=== PATIENT | male | born 1945 | race Caucasian/White ===

== ENCOUNTER → 2021-03-06 12:33 | Outpatient (CLI) | payer OTHER, SELFPAY ==
--- NOTE | 2021-03-06 12:46 | CA_ITS ---
APPROVED REPORT EXAM: Comprehensive 2D, Doppler, and color-flow Echocardiogram Engineer/Conductor: Minna Michelle CRT Ht: 6 ft 3 in Wt: 240lbs BSA: 2.37 BP: 122/70 mmHg Indications: Hyperlipidemia, Hypertension/HDD, stent 2D Dimensions LVOT 2.00 cm (M/F) 1.5-2.5 LA Volume 91.70 mL LA Volume Index 38.70 mL/m2 (M/F) 16-34 M-Mode Dimensions RVDd 2.82 cm (0.9-2.6) LA Diam 4.43 cm (1.9-4.0) LVDd 5.81 cm (3.5-5.7) Ao Diam 3.79 cm (2.0-3.7) LVDs 4.08 cm (3.5-5.7) IVSd 1.25 cm (0.6-1.1) PWd 0.70 cm (0.6-1.1) EF (Teich) 56.10% FS 29.80% EDV (Teich) 167.20 mL TAPSE 2.29 (<1.7) ESV (Teich) 73.40 mL LV Diastology E Decel Time 333.00 (160-240 msec) E/A Ratio 1.48 MED E' 8.20 (< 7 cm/sec) MED A' 11.70 cm/s E'/MED E' Ratio 7.57 (>14) LAT E' 7.00 (<10 cm/sec) LAT A' 2.40 cm/s E/LAT E' Ratio 8.87 (>14) Aortic Valve AI PHT 605.00 ms AO Peak GR. 5.50 mmHg Mitral Valve MV A Velocity 42.00 (40-130 cm/s) E/A Ratio 1.48 MV Decel. Time 333.00 (160-240 ms) Pulmonary Valve PV Peak Velocity 61.00 (50-150 cm/s) Tricuspid Valve TR P. Velocity 286.00 cm/s RAP Estimate 10.00 mmHg RVSP 42.80 mmHg Left Ventricle Left atrium is mildly enlarged, left ventricle is normal size, mild concentric left ventricular hypertrophy, visually estimated ejection fraction 55% with no regional wall motion abnormality, grade 1 diastolic dysfunction seen without tissue Doppler evidence of raise left atrial pressure. Right Ventricle Right atrium and right ventricle are normal size and contractility. Aortic Valve Aortic valve is minimally thickened and calcified there is no aortic stenosis or aortic insufficiency. Mitral Valve Mitral valve is grossly normal, there is trace mitral regurgitation. Tricuspid Valve Tricuspid valve grossly normal, there is trace tricuspid regurgitation, tricuspid regurgitation jet velocity is inadequate for calculation of the right ventricular systolic pressure. Pulmonic Valve Pulmonic valve is poorly visualized. Great Vessels Aortic root is normal size. Pericardium No significant pericardial effusion noted. Conclusion 1. Mildly enlarged left atrium, normal left ventricular size, mild concentric left ventricular hypertrophy, visually estimated ejection fraction 55% with no regional wall motion abnormality, grade 1 diastolic dysfunction seen without tissue Doppler evidence of raise left atrial pressure. 2. Mild mitral and tricuspid regurgitation. 3. No significant pericardial effusion noted. Electronically signed by : Luís Charlton, 03/06/2021 18:58:23
== END ==
PROVIDERS: PCP Family Medicine; Visit Provider Orthopaedic Surgery
DX: I25.9 Chronic ischemic heart disease, unspecified (principal)
CPT/HCPCS: 93306